=== PATIENT | female | born 1955 | race Caucasian/White ===

== ENCOUNTER → 2018-03-07 | Outpatient (CLI) | payer OTHER ==
[~2018-03-07] MED LIST: REGADENOSON 0.4 MG/5 ML SYRINGE ONE
== END | disposition home or self-care (01) ==
LOC: CFH 07:22
PROVIDERS: ATTEND Nurse Practitioner Family
DX: I34.0 Nonrheumatic mitral (valve) insufficiency (principal); I34.8 Other nonrheumatic mitral valve disorders; I35.8 Other nonrheumatic aortic valve disorders; I10 Essential (primary) hypertension; E11.9 Type 2 diabetes mellitus without complications; R06.02 Shortness of breath
CPT/HCPCS: 78452; 93017; 93306; A9502; J2785

== ENCOUNTER 2020-11-10 16:48 | Emergency (ER) | payer OTHER ==
[~2020-11-10] VITALS: Ht 162.6 cm; Wt 90.0 kg
--- NOTE | 2020-11-10 17:38 | NUR ---
PT PRESENTS TO ED WITH C/O PAIN IN L FLANK RADIATING TO LLQ. PT STATES THEY WENT TO [facility] THIS AM, US SHOWED NO STONES BUT SHOWED "IRRITATION AND POSSIBLE OVARIAN CYST". PT STATES SLIGHT NAUSEA, DENIES VOMITTING. PT DENIES PAINFUL URINATION BUT STATES INCREASED FREQUENCY, ALSO STATES CONSTIPATION. PT A&O, RESPS EVEN AND UNLABORED, NADN.
--- NOTE | 2020-11-10 17:40 | NUR ---
PT TO CT
[2020-11-10 17:41] LABS: BASOPHILS % (AUTO) 1 % (0-1); EOSINOPHILS % (AUTO) 1 % (1-7); LYMPHOCYTES % (AUTO) 26 % (22-44); MEAN CORPUSCULAR HEMOGLOBIN 31.9 pg (27.0-34.8); MEAN CORPUSCULAR HGB CONC 34.1 g/dL (32.4-35.8); MEAN PLATELET VOLUME 6.6 fL (7.4-10.4); MONOCYTES % (AUTO) 7 % (2-9); NEUTROPHILS % (AUTO) 66 % (42-75); PLATELET COUNT 263 x10^3/uL (130-400); RED BLOOD COUNT 4.57 x10^6/uL (3.82-5.3); RED CELL DISTRIBUTION WIDTH 13.7 % (9.6-15.2)
[2020-11-10 17:52] LABS: ALBUMIN 3.8 g/dL (3.4-5.0); ANION GAP 5 mmol/L (5-15); CALCIUM 10.4 mg/dL (8.5-10.1); CHLORIDE 108 mmol/L (98-107)
[2020-11-10 17:55] LABS: ALANINE AMINOTRANSFERASE 27 U/L (12-78); ALKALINE PHOSPHATASE 88 U/L (45-117); BILIRUBIN,TOTAL 0.4 mg/dL (0.2-1.0); CREATININE 0.76 mg/dL (0.55-1.02); TOTAL PROTEIN 7.1 g/dL (6.4-8.2)
--- NOTE | 2020-11-10 17:59 | NUR ---
PT BACK FROM CT, UA SUPPLIES AT BEDSIDE
[2020-11-10 18:22] LABS: MD NO
--- NOTE | 2020-11-10 18:43 | NUR ---
preceptor RN note: pt resting on gurney, a&o, resps even and unlabored. denies pain. urine collected and sent to lab. awaiting imaging results and dispo.
--- NOTE | 2020-11-10 19:09 | NUR ---
REPORT GIVEN TO CHLOE RIBERA
--- NOTE | 2020-11-10 19:12 | NUR ---
RECEIEVED BEDSIDE REPORT FROM [facility] RN PT TALKING IN NAD. CONNECTED TO MONITORS. YO
[2020-11-10 19:13] LABS: MICROSCOPIC INDICATED
[2020-11-10 20:07] VITALS: BP 157/88
--- NOTE | 2020-11-10 20:11 | NUR ---
Patient given discharge instructions and they have confirmed that they understand the instructions. Patient ambulatory with steady gait.
== END 2020-11-10 20:13 | disposition home or self-care (01) ==
LOC: ED 17:58
DX: R10.9 Unspecified abdominal pain (principal); R39.15 Urgency of urination; N18.30 Chronic kidney disease, stage 3 unspecified; Z90.89 Acquired absence of other organs; Z90.49 Acquired absence of other specified parts of digestive tract; Z90.710 Acquired absence of both cervix and uterus; Z88.0 Allergy status to penicillin
CPT/HCPCS: 36415; 74176; 80053; 81001; 85025; 87077; 87086; 87186; 99285